=== PATIENT | female | born 1975 | race Caucasian/White ===

== ENCOUNTER 2023-12-16 20:56 | Emergency (ER) | payer BC, SELFPAY ==
[2023-12-16 21:03] VITALS: BP 130/77
[2023-12-16 21:34] VITALS: BP 105/71
[2023-12-16 22:00] VITALS: BP 106/72
--- NOTE | 2023-12-16 22:40 | ED.GENMED ---
History of Present Illness
General
Chief Complaint: Overdose Intentional
Source: patient
Exam Limitations: none
Time Seen by Provider: 12/16/23 22:30
Nursing documentation reviewed up to this point in time: agreed with
Travel History
Have you had any contact with someone who has COVID-19?: No
Do you have any symptoms of coronavirus? Fever > 100 degrees, chills, cough, shortness of breath, sore throat, loss of taste or smell, muscle aches, or headache?: No
History of Present Illness
History of Present Illness:
48-year-old female presents emergency department after overdosing on 10 Xanax 0.25 mg. She just wanted everything to go away.
Past History
Past History
ED Past Medical History: Psychiatric (Anxiety)
ED Past Surgical History:
Social History
Tobacco: Non-smoker
Alcohol: None
Drug: None
Review of Systems
Review of Systems
Allergies reviewed?: Yes
All Other Systems: Not applicable
Constitutional: Reports no symptoms
EENT: Reports no symptoms
Respiratory: Reports no symptoms
Cardiac: Reports no symptoms
ABD/GI: Reports no symptoms
: Reports no symptoms
Musculoskeletal: Reports no symptoms
Skin: Reports no symptoms
Neurological: Reports no symptoms
Endocrine: Reports no symptoms
Hematologic/Lymphatic: Reports no symptoms
Psychiatric: Reports depression
Phy Exam
Physical Exam
Physical Exam:
Physical Exam
General: no apparent distress, not acutely ill, drowsy
Neck: supple. no meningeal signs. normal posterior pharynx
Heart: s1/s2 regular rate and rhythm, no murmur. equal radial
pulses.
HEENT: Pupils equal round reactive to light, EOMI
Lungs: no acute respiratory distress. clear bilaterally
Abdomen: normal bowel sounds. not tender. no CVAT
Neuro: alert and oriented. no focal neurological deficits cranial nerves II through XII intact
Skin: no rash
Psychiatric: well kept. interactive and cooperative
Extremities: no edema. no calf tenderness. negative homans. good distal pulses
Course
Orders/Labs/Results
Orders:
Orders
12/16/23 22:39
Cardiac Monitoring- Treatment ONCE
IV Insert/Care/Rem.- Treatment PRN
Test Result ONCE
12/16/23 22:40
Electrocardiogram (*1) Stat
Reason for Study: Other
Other Reason for Exam: overdose
EKG- Treatment ONCE
12/16/23 22:47
Acetaminophen Urgent
Alcohol Urgent
Complete Blood Count/With Diff Urgent
Comprehensive Metabolic Panel Urgent
HCG, Serum Qualitative Screen Urgent
Salicylate Urgent
Urine Drug Abuse Screen Urgent
Date Specimen was Collected: 12/16/23
Time Specimen was Collected: 22:41
12/16/23 22:50
Crisis Consult Urgent
Reason for Consult: overdose, intentional
12/17/23 06:39
PSYCHIATRY CONSULT Urgent
Consulting Provider: Stanley Denny
Was physician already notified: Yes
12/17/23 08:56
COVID-19 Antigen Urgent
Source: Nasal Swab
Abnormal Lab Results
12/16/23
22:47
WBC 11.7 H 10^3/uL
(4.8-10.8)
Hct 35.6 L %
(37.0-47.0)
Absolute Neuts (auto) 8.5 H 10^3/uL
(1.4-6.5)
Sodium 134 L mmol/L
(135-145)
Salicylates < 1.0 L mg/dl
(2.0-20.0)
Acetaminophen < 10 L ug/ml
(10-30)
12/16/23 22:47
12/16/23 22:47
Vital Signs
Initial and Last Documented VS:
Initial Vital Signs
Temp Pulse Resp BP Pulse Ox
98.2 F 89 18 130/77 100
12/16/23 21:03 12/16/23 21:03 12/16/23 21:03 12/16/23 21:03 12/16/23 21:03
Last Documented Vital Signs
Temp Pulse Resp BP Pulse Ox
98.4 F 86 18 99/64 96
12/17/23 00:04 12/17/23 03:45 12/17/23 03:45 12/17/23 03:00 12/17/23 03:45
MDM/Problems Addressed
Differential Diagnosis Includes:
Suicide attempt, stress gesture
MDM/Problems Addressed:
48-year-old female denies suicidal ideation at this time. Await psychiatric evaluation.
*Pulse Oximetry
Patient hypoxic: no
*EKG
Interpreted by ED Provider?: Yes
EKG Intrepretation Date: 12/17/23
EKG Intrepretation Time: 22:50
Interpretation: abnormal
Comparison EKG: no comparison EKG present
Heart Rate: 86
Rate: normal
Rhythm: sinus
[place]: normal axis
Interval: normal interval
QRS Pattern: normal QRS
Ischemia: non-specific ST changes
*Fire Alarm Technician Interpretation
Rate: normal
Interpretation: normal
Heart Rate: 80
Rhythm: sinus
*Critical Care Note
Total Time (30-74mins, 75-104mins- exclusive of procedures): 30
comment:
Critical care statement: A total of 30 minutes of critical care time was provided for this patient. This includes management of unstable vital signs, evaluation of the patient at bedside, reviewing the patient's pertinent medical records, discussion
with consultants, review of old EKGs and review of pertinent medical records. This time with separate from time utilized to perform the aforementioned documented procedures
Patient Management
Discussion with other providers: Site Supervisor (Telepsychiatry)
Escalation/DeEscalation of care consider admission/obs:
Transfer to psychiatric facility indicated
ED Attending Note
-
Portions of this chart may have been created with voice recognition software.� Occasional wrong word or��sound alike� substitutions may have occurred due to the inherent limitations of voice recognition software.
Discharge Plan
Departure
Patient Disposition: Psych Facility
Patient with high blood pressure during this ER visit?: No
Condition: Good
Discharge Problem:
Intentional benzodiazepine overdose
Referrals:
Isabella Park MD [Family Provider] -
Interventions
Interventions:
*Risk Screen - Suicide Last Done: 12/16/23 21:32
*General Assessment Last Done: 12/16/23 21:03
*Neglect/Abuse Screening Last Done: 12/16/23 21:03
ED- Fall Risk Assessment Last Done: 12/16/23 21:03
*ED COVID-19 Vaccine History Last Done: 12/16/23 21:03
*Nursing Disposition Last Done: 12/17/23 12:54
ED- Cardiac Assessment Last Done: 12/17/23 02:50
ED- Neurological Assessment Last Done: 12/16/23 21:30
ED-Psychological Assessment Last Done: 12/16/23 21:30
ED- Pulmonary Assessment Last Done: 12/17/23 02:50
Discharge Date and Time
Discharge Date/Time: 12/17/23 12:56
[2023-12-16 22:52] LABS: % Basophils 0.4 % (0-2); % Eosinophils 0.8 % (0-6); % Immature Granulocytes 0.3 % (0-0.5); % Lymphocytes 21.2 % (20.5-51.1); % Neutrophils 72.3 % (42.2-75.2); Absolute Basophils 0.1 10^3/uL (0-0.2); Absolute Eosinophils 0.1 10^3/uL (0-0.7); Absolute Lymphocytes 2.5 10^3/uL (1.2-3.4); Absolute Monocytes 0.6 10^3/uL (0.1-0.6); Absolute Neutrophils 8.5 10^3/uL (1.4-6.5); Hematocrit 35.6 % (37.0-47.0); Mean Corp Hgb Conc. 36.5 g/dL (33.0-37.0); Mean Corpuscular Hgb 30.2 pg (27.0-31.0); Mean Corpuscular Volume 82.6 fL (81.0-99.0); Mean Platelet Volume 8.6 fL (7.4-10.4); Nucleated Red Blood Cells % 0 %; Platelet Count 271 10^3/uL (130-400); Red Blood Cell Count 4.31 10^6/uL (4.20-5.40); Red Cell Dist. Width 13.1 % (11.5-14.5); White Blood Cell Count 11.7 10^3/uL (4.8-10.8)
[2023-12-16 23:05] VITALS: BP 95/63
[2023-12-16 23:05] LABS: ALT (SGPT) 13 U/L (0-35); AST (SGOT) 19 U/L (14-36); Acetaminophen < 10 ug/ml (10-30); Albumin 3.9 g/dl (3.5-5.0); Alkaline Phosphatase 41 U/L (38-126); Blood Urea Nitrogen 13 mg/dl (7-17); Carbon Dioxide 26 mmol/L (22-30); Chloride 105 mmol/L (98-107); Glucose 95 mg/dl (70-99); Salicylate < 1.0 mg/dl (2.0-20.0); Sodium 134 mmol/L (135-145); Total Bilirubin 0.5 mg/dl (0.2-1.3); Total Protein 6.6 g/dl (6.3-8.2); eGFR > 60.00
[2023-12-16 23:06] LABS: Alcohol None Detected; HCG, Serum Qualitative Screen Negative
[2023-12-16 23:35] LABS: Amphetamines Negative (Negative); Barbiturates Negative (Negative); Benzodiazepines Negative (Negative); Buprenorphine Negative (Negative); Cocaine Negative (Negative); Marijuana Negative (Negative); Methadone Negative (Negative); Methamphetamines Negative (Negative); Opiates Negative (Negative); Phencyclidine Negative (Negative); Tricyclic Antidepressants Negative (Negative)
[2023-12-17] VITALS: BP 96/57
[2023-12-17 02:07] VITALS: BP 95/52
[2023-12-17 03:00] VITALS: BP 99/64
[2023-12-17 09:21] LABS: COVID-19 Antigen Negative (Negative)
== END 2023-12-17 12:56 ==
LOC: EMR 20:56
PROVIDERS: Emergency Medicine; CONSULT PHYSICIAN Psychiatry & Neurology Psychiatry; EMERGENCY PHYSICIAN Emergency Medicine; FAMILY PHYSICIAN Internal Medicine
DX: T42.4X2A Poisoning by benzodiazepines, intentional self-harm, initial encounter (principal); Z11.52 Encounter for screening for COVID-19
CPT/HCPCS: 99291; 80053; 80143; 80179; 80306; 82077; 84703; 85025; 87811; 93005

== ENCOUNTER → 2024-11-06 09:57 | Outpatient (REF) | payer BC, SELFPAY | LOC: HWWDC 09:57 | PROVIDERS: ATTENDING PHYSICIAN Family Medicine | DX: Z12.31 Encounter for screening mammogram for malignant neoplasm of breast (principal) | CPT/HCPCS: 77063; 77067 ==